=== PATIENT | female | born 1955 | race Hispanic/Latino ===

== ENCOUNTER 2018-05-17 01:37 | Emergency (ER) | payer OTHER ==
--- NOTE | 2018-05-17 03:10 | C.PDOC ---
History Of Present Illness 62 year old female with PMHx of arthritis presents to the ED c/o left knee pain that worsened today while laying down in bed. Patient states her pain medications did not provide any help. Patient denies injury, fall, trauma, numbness, weakness. Time Seen by Provider: 05/17/18 02:10 Chief Complaint (Nursing): Lower Extremity Problem/Injury History Per: Patient History/Exam Limitations: no limitations Onset/Duration Of Symptoms: Hrs Current Symptoms Are (Timing): Still Present Recent travel outside of the [place]: No Additional History Per: Patient - Knee Description Of Injury: Other Currently Unable To: Bend Or Move Alleviating Factor(s): OTC Pain Medication Past Medical History Reviewed: Historical Data, Nursing Documentation, Vital Signs Vital Signs: Last Vital Signs Temp 98.4 F 05/17/18 03:26 Pulse 77 05/17/18 03:26 Resp 16 05/17/18 03:26 BP 152/96 H 05/17/18 03:26 Pulse Ox 98 05/17/18 04:25 - Medical History PMH: Arthritis Surgical History: No Surg Hx Family History: States: Unknown Family Hx - Social History Hx Alcohol Use: No Hx Substance Use: No - Immunization History Hx Tetanus Toxoid Vaccination: Yes Hx Influenza Vaccination: Yes Hx Pneumococcal Vaccination: Yes Review Of Systems Constitutional: Negative for: Fever, Chills Musculoskeletal: Positive for: Leg Pain (left knee) Skin: Negative for: Rash Neurological: Negative for: Weakness, Numbness Physical Exam - Physical Exam Appears: Non-toxic, No Acute Distress Skin: Normal Color, Warm, Dry Head: Atraumatic, Normacephalic Eye(s): bilateral: Normal Inspection Oral Mucosa: Moist Neck: Normal ROM, Supple Chest: Symmetrical Cardiovascular: Rhythm Regular Respiratory: Normal Breath Sounds, No Rales, No Rhonchi, No Wheezing Back: Normal Inspection Extremity: Normal ROM (left knee painful), Tenderness (minimal medial aspect left knee), Capillary Refill (< 2 seconds), No Deformity, No Swelling Pulses: Left Dorsalis Pedis: Normal, Right Dorsalis Pedis: Normal Neurological/Psych: Oriented x3, Normal Speech, Normal Motor, Normal Sensation Gait: Steady ED Course And Treatment O2 Sat by Pulse Oximetry: 98 (ON RA) Pulse Ox Interpretation: Normal Progress Note: Plan: - Toradol 30 mg IM. - Prednisone 60 mg PO. Patient was put in an GRAHAM wrap but RN and patient was advised to follow up with PMD. 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 - Scribe Statement The provider has reviewed the documentation as recorded by the Scribe Enrique Aaron All medical record entries made by the Scribe were at my direction and personally dictated by me. I have reviewed the chart and agree that the record accurately reflects my personal performance of the history, physical exam, medical decision making, and the department course for this patient. I have also personally directed, reviewed, and agree with the discharge instructions and disposition.
[2018-05-17 03:27] VITALS: BP 152/96; PULSE 77; RESP 16; TEMP 98.4
[2018-05-17 04:22] VITALS: O2SAT 98
== END 2018-05-17 03:27 | disposition home or self-care (01) ==
LOC: C.ER 01:37
DX: M25.562 Pain in left knee (principal)
CPT/HCPCS: 96372; 99284; J1885

== ENCOUNTER 2018-07-10 09:25 | Inpatient (IN) | payer OTHER ==
[2018-07-05 09:19] VITALS: BMI 40.7
[~2018-07-10 09:25] MED LIST: Bupivacaine 0.25% 20 ML INJ IJ ONE; Thrombin Topical 20,000 Intl Units Spray Kit TOP ONE; ceFAZolin IV 1 gm in Dextrose 2 GM/100 ML BAG IVPB ONE
[2018-07-10] MEDS ORDERED: Rocuronium 10 mg/ml (5 ml) ONE (10:56)
[2018-07-10] MEDS ORDERED: Propofol 10 mg/ml Inj (20 ML) ONE ×2 (10:56→14:52)
[2018-07-10] MEDS ORDERED: Midazolam 2 MG/2 ML VIAL ONE (10:56)
[2018-07-10] MEDS ORDERED: Bacitracin 150,000 UNIT in Sodium Chloride 0.9% Irrig 3,000 ML IR SCH (11:29)
[2018-07-10] MEDS ORDERED: Bupivacaine Liposomal Inj 20 ml INFIL ONE (11:30)
--- NOTE | 2018-07-10 11:59 | CP.PCM.HP ---
History of Present Illness - History of Present Illness History of Present Illness: 63F complains of left knee DJD failed conservative mgmt and elected for TKR. PMH: HTN NKDA no hx bleeding clotting disorder, stents, DVT PE, seizure, CAD, CVA Present on Admission - Present on Admission Any Indicators Present on Admission: No Review of Systems - Review of Systems All systems: reviewed and no additional remarkable complaints except - Musculoskeletal Musculoskeletal: As Per HPI Past Patient History - Past Medical History & Family History Past Medical History?: Yes Past Family History: Reviewed and not pertinent - Past Social History Smoking Status: Light Smoker < 10 Cigarettes Daily - CARDIAC Hx Hypertension: Yes - PULMONARY Hx Respiratory Disorders: No - NEUROLOGICAL Hx Neurological Disorder: No - HEENT Hx HEENT Problems: No - RENAL Hx Chronic Kidney Disease: No - ENDOCRINE/METABOLIC Hx Endocrine Disorders: No - HEMATOLOGICAL/ONCOLOGICAL Hx Blood Disorders: No - INTEGUMENTARY Hx Dermatological Problems: No - MUSCULOSKELETAL/RHEUMATOLOGICAL Hx Musculoskeletal Disorders: Yes Hx Arthritis: Yes Hx Degenerative Joint Disease: Yes - GASTROINTESTINAL Hx Gastrointestinal Disorders: Yes - GENITOURINARY/GYNECOLOGICAL Hx Genitourinary Disorders: No - PSYCHIATRIC Hx Psychophysiologic Disorder: No Hx Substance Use: No - SURGICAL HISTORY Hx Surgeries: Yes Hx Orthopedic Surgery: Yes (LEFT BIG TOE) - ANESTHESIA Hx Anesthesia: Yes Hx Anesthesia Reactions: No Hx Malignant Hyperthermia: No Has any member of the family had a problem w/ anesthesia?: No Meds Allergies/Adverse Reactions: Allergies Allergy/AdvReac Type Severity Reaction Status Date / Time No Known Allergies Allergy Verified 05/17/18 01:51 Physical Exam - Constitutional Appears: Well, No Acute Distress - Respiratory Exam Respiratory Exam: NORMAL BREATHING PATTERN - Extremities Exam Additional comments: calves soft NT neg homans sensaiton intact +DP/PT pulses - Expanded Lower Extremities Exam Left Knee exam: tenderness Ankle exam: FULL ROM, NORMAL INSPECTION - Neurological Exam Neurological exam: Alert, Oriented x3 - Psychiatric Exam Psychiatric exam: Normal Affect, Normal Mood - Skin Skin Exam: Dry, Intact, Normal Color, Warm Results - Vital Signs Recent Vital Signs: Last Vital Signs Temp 97.8 F 07/10/18 10:02 Pulse 78 07/10/18 10:02 Resp 18 07/10/18 10:02 BP 144/66 07/10/18 10:02 Pulse Ox 97 07/10/18 10:02 - Labs Labs: Laboratory Results - last 24 hr 07/10/18 10:45 Blood Type AB POSITIVE - Impressions Impression: labs and medical clearance on chart, reviewed Assessment & Plan (1) Primary osteoarthritis of left knee Assessment and Plan: NPO T&C for TKR risks/lavelle/alt of TKR explained to pt who verbalized understanding and consented to procedure d/w Dr. Camarena, agrees with above Status: Acute (2) HTN (hypertension) Assessment and Plan: cont home meds Status: Chronic
[2018-07-10] MEDS ORDERED: Tranexamic Acid 1,000 MG in Sodium Chloride 0.9% 50 ML IV ONE ×2 (12:00→13:00)
[2018-07-10] MEDS ORDERED: Phenylephrine 10 mg/ml Inj ONE (12:16)
[2018-07-10] MEDS ORDERED: Sodium Chloride 0.9% 60 ML IV ONE (12:32)
[2018-07-10] MEDS ORDERED: Morphine 4 MG/ML VIAL ONE (13:56)
[2018-07-10] MEDS ORDERED: Neostigmine Methylsulfate 3mg/3ml Syringe IV ONE (14:25)
[2018-07-10] MEDS ORDERED: Bupivacaine 0.25% 20 ML INJ IJ ONE ×2 (14:48→15:01)
--- NOTE | 2018-07-10 14:51 | PCM.SURG1 ---
Surgeon's Initial Post Op Note - Surgeon's Notes Surgeon: Lauren Camarena MD Tank Bottom Assembler: Tika Nicolas PA-C Type of Anesthesia: General Endo Anesthesia Administered By: Dr. Mercado Pre-Operative Diagnosis: left knee osteoarthritis Operative Findings: see full note Post-Operative Diagnosis: same Operation Performed: left total knee arthroplasty Specimen/Specimens Removed: none Estimated Blood Loss: EBL {In ML}: 50 Blood Products Given: N/A Drains Used: Hemovac, Wound Vac Post-Op Condition: Fair Date of Surgery/Procedure: 07/10/18 Time of Surgery/Procedure: 14:51
[2018-07-10] MEDS: HYDROmorphone 0.5 mg/0.5 ml ISec IVP PRN ×2 (15:00→16:00)
--- NOTE | 2018-07-10 15:16 | PCM.ANESB3 ---
Femoral Nerve Block - Femoral Nerve Block Date of Procedure: 07/10/18 Anesthesiologist: Jess Pre-Procedure Diagnosis: Left knee OA Post-Procedure Diagnosis: Left knee OA Procedure Performed: Femoral Nerve Block Left - Procedure Femoral Nerve Block: The procedure was explained to the patient that it is for the post-operative pain management. Consent was obtained after a thorough discussion with the patient regarding the benefits and possible complications of local anesthetic block of the femoral nerve at the inguinal crease area. The patient was brought to the operating room and standard monitors were applied. Time-out was held with the circulating nurse to confirm the correct surgery and the appropriate block. After applying oxygen by nasal cannula and administering IV Sedation, patient was placed in supine position with fully extended lower extremities and the groin exposed. The femoral artery was then carefully palpated. The ultrasound transducer was then applied to this area in the transverse plane and the femoral nerve was visualized lateral to the femoral artery and underneath the fascia iliaca. After thorough identification, the inguinal crease area was prepped with Betadine solution three times and 1 % Lidocaine was injected subcutaneously for topical anesthesia. At this point, a #22 gauge Stimuplex 2-inch needle was inserted immediately lateral to the femoral artery pulse at the inguinal crease and advanced perpendicularly. The needle was inserted to the ultrasound transducer in-plane towards the femoral nerve in a [id number] direction. Needle advancement was performed carefully under direct ultrasound visualization. After negative aspiration, 20 cc of __0.25% ___bupivicaine____was injected. Under ultrasound guidance the local anesthetics were observed spreading below fascia iliaca and around the femoral nerve. The needle was removed intact and sterile dressing was applied. The patient had stable vital signs, was conscious and in no apparent distress. The patient tolerated the femoral nerve block well with stable vital signs and was prepared for subsequent surgery.
--- NOTE | 2018-07-10 15:42 | RAD ---
Date of service: 07/10/2018 PROCEDURE: Left Knee Radiographs. HISTORY: Pain. COMPARISON: None. FINDINGS: BONES: Status post recent total knee arthroplasty tibial stem cemented. Fred ocal alignment appears appropriate. JOINTS: Medial tibial spine spurring compatible with osteoarthrosis JOINT EFFUSION: Small joint effusion suggested. OTHER FINDINGS: Subcutaneous radiolucencies compatible with recent intervention suprapatellar drainage tube in place. Anterior skin sandrine present IMPRESSION: Recent total knee arthroplasty -expectant postop changes
--- NOTE | 2018-07-10 15:55 | CP.PCM.CON ---
<MarilynbrittaEufemia TamikaJonathon - Last Filed: 07/10/18 15:44> History of Present Illness - History of Present Illness History of Present Illness: Consult for Hypertension Patient is a 63 year old female with a history of osteoarthritis, degenerative disc disease and hypertension, who presents to the hospital for left total knee replacement with Dr. Camarena. The patient was recently diagnosed with hypertension by her PMD, Dr Nino Edwards, approximately 2 months ago and has been taking Losartan 50mg PO daily. She checks her blood pressure at home, which ranges from 120/70 to 144/82. She also takes aspirin 81mg PO daily, but has not taken it for 8 days prior to the surgery. She currently reports feeling tired, otherwise has no additional complaints at this time. Remaining review of systems is negative. PMD: Dr. Jessika Edwards PMHx: Osteoarthritis, HTN, Degenerative disc disease SurgHx: Left great toe ("toe was fused together") 10+ years ago FamHx: Father- Heart disease, throat cancer; Mother- Pancreatic cancer SocHx: smokes 1/2 ppd [id number], denies alcohol and drug use; lives with daughter (Nehemias Nicole) and granddaughter in [place]; retired (formerly worked in a bank and daycare) Allergies: NKDA Medications: Losartan 50mg PO daily (in AM), ASA 81mg PO daily, multivitamins, omega 3 Review of Systems - Constitutional Constitutional: Fatigue. absent: Fever, Headache - EENT Ears: absent: Dizziness - Cardiovascular Cardiovascular: absent: Chest Pain, Dyspnea, Edema, Lightheadedness, Rapid Heart Rate - Respiratory Respiratory: absent: Cough, Dyspnea - Gastrointestinal Gastrointestinal: absent: Abdominal Pain, Constipation, Diarrhea, Hematochezia, Nausea, Vomiting - Genitourinary Genitourinary: absent: Dysuria, Pyuria - Musculoskeletal Additional comments: left LE pain post total knee replacement - Neurological Neurological: absent: Dizziness, Headaches - Endocrine Endocrine: Fatigue Past Patient History - Past Medical History & Family History Past Medical History?: Yes Past Family History: Reviewed and not pertinent - Past Social History Smoking Status: Light Smoker < 10 Cigarettes Daily - CARDIAC Hx Hypertension: Yes - PULMONARY Hx Respiratory Disorders: No - NEUROLOGICAL Hx Neurological Disorder: No - HEENT Hx HEENT Problems: No - RENAL Hx Chronic Kidney Disease: No - ENDOCRINE/METABOLIC Hx Endocrine Disorders: No - HEMATOLOGICAL/ONCOLOGICAL Hx Blood Disorders: No - INTEGUMENTARY Hx Dermatological Problems: No - MUSCULOSKELETAL/RHEUMATOLOGICAL Hx Musculoskeletal Disorders: Yes Hx Arthritis: Yes Hx Degenerative Joint Disease: Yes - GASTROINTESTINAL Hx Gastrointestinal Disorders: Yes - GENITOURINARY/GYNECOLOGICAL Hx Genitourinary Disorders: No - PSYCHIATRIC Hx Psychophysiologic Disorder: No Hx Substance Use: No - SURGICAL HISTORY Hx Surgeries: Yes Hx Orthopedic Surgery: Yes (LEFT BIG TOE) - ANESTHESIA Hx Anesthesia: Yes Hx Anesthesia Reactions: No Hx Malignant Hyperthermia: No Has any member of the family had a problem w/ anesthesia?: No Meds Allergies/Adverse Reactions: Allergies Allergy/AdvReac Type Severity Reaction Status Date / Time No Known Allergies Allergy Verified 05/17/18 01:51 - Medications Medications: Current Medications Acetaminophen (Tylenol 325mg Tab) 650 mg PO Q6 [facility]A Apixaban (Eliquis) 2.5 mg PO BID [facility] Docusate Sodium (Colace) 100 mg PO BID [facility] Ergocalciferol (Drisdol 50,000 Intl Units Cap) 1 cap PO Q7D [facility]A Hydromorphone HCl (Dilaudid) 0.5 mg IVP Q10M PRN PRN Reason: Pain, moderate (4-7) Stop: 07/10/18 16:56 Last Admin: 07/10/18 15:00 Dose: 0.5 mg Hydromorphone HCl (Dilaudid) 0.5 mg IVP Q4H PRN PRN Reason: Pain, severe (8-10) Cefazolin Sodium/Dextrose (Ancef Iv 2 Gm Duplex) 2 gm in 50 mls @ 100 mls/hr IVPB Q8H [facility]A PRN Reason: Protocol Stop: 07/11/18 04:29 Losartan Potassium (Cozaar) 50 mg PO DAILY [facility] Multivitamins/Minerals (Therapeutic-M Tab) 1 tab PO DAILY [facility] Oxycodone HCl (Oxycodone Immediate Release Tab) 10 mg PO Q6 PRN PRN Reason: Pain, moderate (4-7) Pregabalin (Lyrica) 50 mg PO BID [facility] Sennosides (Senokot Tab) 17.2 mg PO HS [facility]A Physical Exam - Constitutional Appears: No Acute Distress - Head Exam Head Exam: ATRAUMATIC, NORMAL INSPECTION, NORMOCEPHALIC - Eye Exam Eye Exam: EOMI, Normal appearance, PERRL - ENT Exam ENT Exam: Mucous Membranes Moist - Respiratory Exam Respiratory Exam: Clear to Auscultation Bilateral, NORMAL BREATHING PATTERN. absent: Rales, Rhonchi, Wheezes, Respiratory Distress - Cardiovascular Exam Cardiovascular Exam: REGULAR RHYTHM, +S1, +S2. absent: Bradycardia, Tachycardia - GI/Abdominal Exam GI & Abdominal Exam: Normal Bowel Sounds, Soft. absent: Distended, Firm, Guarding, Mass, Tenderness - Extremities Exam Additional comments: RLE: pulses intact, no edema palpated, sensation intact LLE: pulses intact, no edema palpated, sensation intact, brace and dressing in place- clean, dry, intact - Neurological Exam Neurological exam: Alert, Oriented x3 - Psychiatric Exam Psychiatric exam: Normal Affect, Normal Mood - Skin Skin Exam: Dry, Intact, Warm Results - Vital Signs Recent Vital Signs: Last Vital Signs Temp 97.8 F 07/10/18 10:02 Pulse 78 07/10/18 10:02 Resp 18 07/10/18 10:02 BP 144/66 07/10/18 10:02 Pulse Ox 97 07/10/18 10:02 - Labs Labs: Laboratory Results - last 24 hr 07/10/18 10:45 Blood Type AB POSITIVE Antibody Screen Negative Assessment & Plan (1) HTN (hypertension) Assessment and Plan: Continue home medication: Losartan 50mg PO daily Continue to monitor vitals. Status: Chronic (2) Status post total knee replacement, left Assessment and Plan: s/p left total knee replacement with Dr. Camarena on 07/10/18 Continue management per ortho, Dr. Camarena Pain management per ortho PT/OT Status: Acute (3) Tobacco abuse Assessment and Plan: Smoking cessation counseling provided. Patient offered Nicoderm patch; however, declined and "wants to quit on her own ". Status: Acute (4) Prophylactic measure Assessment and Plan: DVT: Eliquis 2.5mg PO BID, SCD on RLE GI: not indicated Regular diet PT/OT Incentive spirometer Status: Acute <Kristine Cortés V - Last Filed: 07/10/18 21:33> Meds - Medications Medications: Current Medications Acetaminophen (Tylenol 325mg Tab) 650 mg PO Q6 [facility]A Apixaban (Eliquis) 2.5 mg PO BID [facility] Docusate Sodium (Colace) 100 mg PO BID [facility]A Ergocalciferol (Drisdol 50,000 Intl Units Cap) 1 cap PO Q7D [facility] Hydromorphone HCl (Dilaudid) 0.5 mg IVP Q4H PRN PRN Reason: Pain, severe (8-10) Cefazolin Sodium/Dextrose (Ancef Iv 2 Gm Duplex) 2 gm in 50 mls @ 100 mls/hr IVPB Q8H [facility]A PRN Reason: Protocol Stop: 07/11/18 04:29 Losartan Potassium (Cozaar) 50 mg PO DAILY [facility] Multivitamins/Minerals (Therapeutic-M Tab) 1 tab PO DAILY [facility] Ondansetron HCl (Zofran Inj) 4 mg IVP Q4H PRN PRN Reason: Nausea/Vomiting Last Admin: 07/10/18 20:15 Dose: 4 mg Oxycodone HCl (Oxycodone Immediate Release Tab) 10 mg PO Q6 PRN PRN Reason: Pain, moderate (4-7) Pregabalin (Lyrica) 50 mg PO BID [facility] Sennosides (Senokot Tab) 17.2 mg PO HS [facility] Results - Vital Signs Recent Vital Signs: Last Vital Signs Temp 98 F 07/10/18 19:45 Pulse 85 07/10/18 19:45 Resp 20 07/10/18 19:45 BP 121/84 07/10/18 19:45 Pulse Ox 95 07/10/18 19:45 - Labs Labs: Laboratory Results - last 24 hr 07/10/18 10:45 Blood Type AB POSITIVE Antibody Screen Negative Attending/Attestation - Attestation I have personally seen and examined this patient.: Yes I have fully participated in the care of the patient.: Yes I have reviewed all pertinent clinical information: Yes Notes (Text): Medicine is consult for post medical management following total knee replacement with a patient with known degenerative joint disease, hypertension, smoking history. We have met patient in the PACU. She is antonio lady; has been off her aspirin for 8 days prior to OR, has taken her Losartan this morning prior to OR; denies any acute complaints. She reports she takes MVI and fish oil over the counter at home. patient reports she is fpc smoker, she understands the cancer risk, carole also explained to her can delay wound healing as well. She has been offered nicotone patch for cessation but does not want. Case discussed with medical biller. Assessment/Plan (1) After care, status post total knee replacement, left History of Degenerative Joint Disease Assessment and Plan: * s/p left total knee replacement with Dr. Camarena on 07/10/18 * Continue management per ortho, Dr. Camarena * preoperative/intraoperative/postoperative management per ortho * Pain management per ortho * PT/OT eval * Patient ordered for antibiotic post OR. * I hae added probiotic on board * Anticoagulation per orthopedic * Will need to f/u with orthopedic when patient resume aspirin Status: Acute (2) HTN (hypertension) Assessment and Plan: * Continue home medication: Losartan 50mg PO daily * Continue to monitor vitals. Status: Chronic (3) Tobacco abuse Assessment and Plan: * Smoking cessation counseling provided. * Patient offered Nicoderm patch; however, declined and "wants to quit on her own". Status: Chronic (4) Prophylactic measure Assessment and Plan: * DVT Ppx: Eliquis 2.5mg PO BID, SCD on RLE * GI: not indicated * changed diet to heart healthy given hypertension * PT/OT * incentive spirometer Status: Acute
[2018-07-10 20:55] VITALS: RESP 20
[2018-07-10] MEDS: ceFAZolin IV 2 gm in Dextrose 2 GM/50 ML BAG IVPB SCH (21:35)
--- NOTE | 2018-07-11 00:36 | OP ---
PROCEDURE DATE: 07/10/2018 PREOPERATIVE DIAGNOSIS: Left knee arthritis. POSTOPERATIVE DIAGNOSIS: Left knee arthritis. PROCEDURE: Left total knee arthroplasty. SURGEON: Justin Camarena MD ASSISTANTS: Dr. Camarena was assisted by Daniela Mccurdy, physician equity sales assistant and Huma Blackwell PA-C. Both physician assistants were scrubbed and present throughout the entire case and assisted in patient positioning, retraction during the case as well as wound closure. COMPLICATIONS: None. ESTIMATED BLOOD LOSS: 125 mL. TOURNIQUET TIME: 89 minutes. IMPLANT: [employer]omet Vanguard total knee system. INDICATIONS FOR PROCEDURE: This is a 63-year-old female who presented with longstanding left knee pain. Clinical examination was consistent with significant medial and peripatellar tenderness to palpation, pain at the extremes of knee flexion, pain with axial load. Radiographic examination was consistent with advanced degenerative joint disease of the knee. After a period of failed nonsurgical management including activity modification, medications, and injections, recommendations were for a left total knee arthroplasty. The risks, benefits, and alternatives of the procedure were discussed with the patient and informed consent was obtained. OPERATIVE PROCEDURE: After surgical site was finally verified in the perioperative holding area, the patient was taken to the operating room and placed supine on the operating room table. After administration of general anesthesia, the patient received 2 g of Ancef IV. Menard catheter was inserted. Tourniquet was placed about the left thigh. Care was taken to make sure that all bony prominences and nerves were well padded and protected, and the left lower extremity was prepped and draped in the usual sterile fashion. The bony landmarks were identified about the left knee. Approximately 10-cm longitudinal midline incision was made. Soft tissues were dissected sharply down to the knee joint, and a medial parapatellar arthrotomy was performed. Medial and lateral menisci of the anterior fat pad, ACL and PCL were all resected. Once the knee joint was adequately exposed, the step drill was used to drill into the medullary canal of the distal femur. The intramedullary distal femoral cutting block was inserted and pinned into place. A distal femoral resection was performed. Next, a femoral component was sized. The 4-in-1 cut block was pinned into place. Anterior and posterior cuts were then performed. Next, a box cut was performed on the distal femur. Attention was directed to the tibia. Extramedullary tibial guide was inserted and pinned into place. Satisfied with our alignment, the tibial resection was performed. Additionally, flexion and extension gaps were checked. The patient was noted to have full flexion and extension and stable with varus and valgus stress through the range of motion. Satisfied, tibial plate was sized and the medullary canal of the proximal tibia was reamed and punched with a cruciate punch. At this point, with a trial tibia, trial femur, and trial bearing were placed. The knee was taken through range of motion and was noted to be stable throughout range of motion. Attention was then directed to the patella. Thickness of the patella was measured, and a patellar resection was performed. The patellar button was sized and the holes for our patella were then drilled. Trial patella was then inserted, and the knee was taken through range of motion. The patient was noted to have some lateral tilt, and this was corrected by performing the lateral retinacular release. At this point, the trial components were removed and the knee joint was pulse lavaged with antibiotic saline solution. The bony surfaces were then dried, and the actual tibial, femoral, and patellar components were cemented into place. Care was taken to remove all excess cement. Once the cement was hardened, the wound was inspected for any debris and was once again pulse lavaged. The actual bearing was then inserted and locked into place with a cross pin. At this point, the tourniquet was deflated and any obvious bleeding was cauterized. The medium Hemovac drain was inserted, and arthrotomy was closed with #1 Vicryl suture. The subcutaneous tissue was closed using 0 Vicryl and 2-0 Vicryl suture, and the skin was closed using sandrine. A MIRIAM incisional wound dressing was applied, and a knee immobilizer was placed. The patient was awakened from the procedure and taken to the recovery room in stable condition. Justin Camarena MD
[2018-07-11] MEDS: oxyCODONE 10 mg Immediate Release Tab PO PRN ×2 (02:29→09:26)
[2018-07-11] MEDS: ceFAZolin IV 2 gm in Dextrose 2 GM/50 ML BAG IVPB SCH (04:14)
[2018-07-11] MEDS: HYDROmorphone 0.5 mg/0.5 ml ISec IVP PRN ×4 (06:14→23:46)
[2018-07-11] MEDS ORDERED: Ergocalciferol 50,000 Intl Units Cap PO SCH (08:00)
[2018-07-11 08:38] LABS: BASO # 0.1 K/uL (0.0-0.2); BASO % 0.6 % (0.0-2.0); EOS # 0.1 K/uL (0.0-0.7); HEMOGLOBIN 11.1 g/dL (11.0-16.0); LYMPH # 2.4 K/uL (1.0-4.3); LYMPH % 27.2 % (20.0-40.0); MEAN CELL VOLUME 91.4 fL (81.0-99.0); MEAN CORPUSCULAR HEMOGLOBIN 30.8 pg (27.0-31.0); MEAN CORPUSCULAR HGB CONC 33.7 g/dL (33.0-37.0); MEAN PLATELET VOLUME 8.2 fL (7.2-11.7); MONO # 0.7 K/uL (0.0-0.8); MONO % 7.4 % (0.0-10.0); NEUT # 5.7 K/uL (1.8-7.0); NEUT % 63.8 % (50.0-75.0); NRBC % 0.1 % (0.0-2.0); RBC 3.62 Mil/uL (3.80-5.20); RED CELL DISTRIBUTION WIDTH 13.5 % (11.5-14.5); WHITE BLOOD COUNT 8.9 K/uL (4.8-10.8)
[2018-07-11 09:01] LABS: ALB/GLOB RATIO 1.1 (1.0-2.1); ALBUMIN 3.1 g/dL (3.5-5.0); ALT/SGPT 25 U/L (9-52); AST/SGOT 14 U/L (14-36); BLOOD UREA NITROGEN 13 mg/dL (7-17); CALCIUM 8.3 mg/dl (8.6-10.4); GFR NON-AFRICAN AMERICAN > 60
--- NOTE | 2018-07-11 09:16 | CP.PCM.PN ---
Subjective - Date & Time of Evaluation Date of Evaluation: 07/11/18 Time of Evaluation: 09:11 - Subjective Subjective: Patient POD#1. Patient seen and examined. Patient alert and awake. Denies any significant pain. Menard removed. Patient tolerated CPM machine yesterday. afebrile WBC 8.9 Hgb 11.1 L knee: dressings are dry and intact. Hemovac in place on suction. PICCO on. Calf and thigh are soft and non-tender. Neurovascularly she is intact distally POD# 1 s/p L TKA Cont DVT prophylaxis Cont PT Cont CPM Cont pain control Cont incentive spirometer Dressing changes tomorrow Plan on discharge tomorrow with home PT and visiting nurse Discussed above with Dr. Camarena, he agrees. Objective - Vital Signs/Intake and Output Vital Signs (last 24 hours): Temp Pulse Resp BP Pulse Ox 98.9 F 81 20 136/74 96 07/11/18 07:00 07/11/18 07:00 07/11/18 07:00 07/11/18 07:00 07/11/18 07:00 Intake and Output: 07/11/18 07/11/18 06:59 18:59 Intake Total 550 Output Total 760 Balance -210 - Medications Medications: Current Medications Acetaminophen (Tylenol 325mg Tab) 650 mg PO Q6 [facility] Last Admin: 07/11/18 06:26 Dose: Not Given Apixaban (Eliquis) 2.5 mg PO BID [facility] Docusate Sodium (Colace) 100 mg PO BID [facility] Last Admin: 07/10/18 21:37 Dose: Not Given Ergocalciferol (Drisdol 50,000 Intl Units Cap) 1 cap PO Q7D [facility] Hydromorphone HCl (Dilaudid) 0.5 mg IVP Q4H PRN PRN Reason: Pain, severe (8-10) Last Admin: 07/11/18 06:14 Dose: 0.5 mg Losartan Potassium (Cozaar) 50 mg PO DAILY [facility] Multivitamins/Minerals (Therapeutic-M Tab) 1 tab PO DAILY [facility] Ondansetron HCl (Zofran Inj) 4 mg IVP Q4H PRN PRN Reason: Nausea/Vomiting Last Admin: 07/10/18 20:15 Dose: 4 mg Oxycodone HCl (Oxycodone Immediate Release Tab) 10 mg PO Q6 PRN PRN Reason: Pain, moderate (4-7) Last Admin: 07/11/18 02:29 Dose: 10 mg Pregabalin (Lyrica) 50 mg PO BID [facility] Last Admin: 07/10/18 21:46 Dose: 50 mg Saccharomyces Boulardii (Florastor) 250 mg PO BID [facility] Sennosides (Senokot Tab) 17.2 mg PO HS [facility] Last Admin: 07/10/18 21:38 Dose: Not Given - Labs Labs: 07/11/18 08:16 07/11/18 08:16
[2018-07-11] MEDS: Multivitamin With Minerals Tab PO SCH (09:25)
[2018-07-11] MEDS: Saccharomyces Boulardi 250 mg Cap PO SCH ×2 (09:25→17:20)
--- NOTE | 2018-07-11 12:01 | CP.PCM.PN ---
Subjective - Date & Time of Evaluation Date of Evaluation: 07/11/18 Time of Evaluation: 11:59 - Subjective Subjective: RX FOR HOME PHY THER AND WOUND CARE (TO BE DONE EVERY OTHER DAY OR 3 TIMES/WEEK ; CLEAN WITH NS AND APPLY DSD) GIVEN TO CASE MANAGEMENT PER THE REQUEST OF SHARATH MCDONALD. NO FURTHER ORDERS. Objective - Vital Signs/Intake and Output Vital Signs (last 24 hours): Temp Pulse Resp BP Pulse Ox 98.9 F 81 20 136/74 96 07/11/18 07:00 07/11/18 07:00 07/11/18 07:00 07/11/18 07:00 07/11/18 07:00 Intake and Output: 07/11/18 07/11/18 06:59 18:59 Intake Total 550 Output Total 760 Balance -210 - Medications Medications: Current Medications Acetaminophen (Tylenol 325mg Tab) 650 mg PO Q6 [facility] Last Admin: 07/11/18 06:26 Dose: Not Given Apixaban (Eliquis) 2.5 mg PO BID [facility] Last Admin: 07/11/18 09:25 Dose: 2.5 mg Docusate Sodium (Colace) 100 mg PO BID [facility] Last Admin: 07/11/18 09:27 Dose: Not Given Ergocalciferol (Drisdol 50,000 Intl Units Cap) 1 cap PO Q7D [facility] Last Admin: 07/11/18 09:29 Dose: 1 cap Hydromorphone HCl (Dilaudid) 0.5 mg IVP Q4H PRN PRN Reason: Pain, severe (8-10) Last Admin: 07/11/18 06:14 Dose: 0.5 mg Losartan Potassium (Cozaar) 50 mg PO DAILY [facility] Last Admin: 07/11/18 09:26 Dose: 50 mg Multivitamins/Minerals (Therapeutic-M Tab) 1 tab PO DAILY [facility] Last Admin: 07/11/18 09:25 Dose: 1 tab Ondansetron HCl (Zofran Inj) 4 mg IVP Q4H PRN PRN Reason: Nausea/Vomiting Last Admin: 07/10/18 20:15 Dose: 4 mg Oxycodone HCl (Oxycodone Immediate Release Tab) 10 mg PO Q6 PRN PRN Reason: Pain, moderate (4-7) Last Admin: 07/11/18 09:26 Dose: 10 mg Pregabalin (Lyrica) 50 mg PO BID [facility] Last Admin: 07/11/18 09:25 Dose: 50 mg Saccharomyces Boulardii (Florastor) 250 mg PO BID [facility] Last Admin: 07/11/18 09:25 Dose: 250 mg Sennosides (Senokot Tab) 17.2 mg PO [facility] Last Admin: 07/10/18 21:38 Dose: Not Given - Labs Labs: 07/11/18 08:16 07/11/18 08:16
--- NOTE | 2018-07-11 15:13 | CP.PCM.PN ---
<Kenrick Swan - Last Filed: 07/11/18 15:01> Subjective - Date & Time of Evaluation Date of Evaluation: 07/11/18 Time of Evaluation: 15:01 - Subjective Subjective: PGY-[address] Cortés Patient seen and examined at bedside. S/p L TKA yesterday, post-op day 1. Pt only complaining of L knee pain, extending proximally. She has been sleeping well and tolerating PO meals. Patient has not had a bowel movement since Monday before her procedure. Medical student performed OMT- mesenteric lift and gangliionic release, to attempt facilitation of bowel movements. Pt denies chest pain, dizziness, headache, abdominal pain, nausea, vomiting. Objective - Vital Signs/Intake and Output Vital Signs (last 24 hours): Temp Pulse Resp BP Pulse Ox 98.9 F 81 20 136/74 96 07/11/18 07:00 07/11/18 07:00 07/11/18 07:00 07/11/18 07:00 07/11/18 07:00 Intake and Output: 07/11/18 07/11/18 06:59 18:59 Intake Total 550 Output Total 760 Balance -210 - Medications Medications: Current Medications Acetaminophen (Tylenol 325mg Tab) 650 mg PO Q6 [facility] Last Admin: 07/11/18 12:59 Dose: 650 mg Apixaban (Eliquis) 2.5 mg PO BID [facility] Last Admin: 07/11/18 09:25 Dose: 2.5 mg Docusate Sodium (Colace) 100 mg PO BID [facility] Last Admin: 07/11/18 09:27 Dose: Not Given Ergocalciferol (Drisdol 50,000 Intl Units Cap) 1 cap PO Q7D [facility] Last Admin: 07/11/18 09:29 Dose: 1 cap Hydromorphone HCl (Dilaudid) 0.5 mg IVP Q4H PRN PRN Reason: Pain, severe (8-10) Last Admin: 07/11/18 13:01 Dose: 0.5 mg Losartan Potassium (Cozaar) 50 mg PO DAILY [facility] Last Admin: 07/11/18 09:26 Dose: 50 mg Multivitamins/Minerals (Therapeutic-M Tab) 1 tab PO DAILY [facility] Last Admin: 07/11/18 09:25 Dose: 1 tab Ondansetron HCl (Zofran Inj) 4 mg IVP Q4H PRN PRN Reason: Nausea/Vomiting Last Admin: 07/10/18 20:15 Dose: 4 mg Oxycodone HCl (Oxycodone Immediate Release Tab) 10 mg PO Q6 PRN PRN Reason: Pain, moderate (4-7) Last Admin: 07/11/18 09:26 Dose: 10 mg Pregabalin (Lyrica) 50 mg PO BID [facility] Last Admin: 07/11/18 09:25 Dose: 50 mg Saccharomyces Boulardii (Florastor) 250 mg PO BID [facility] Last Admin: 07/11/18 09:25 Dose: 250 mg Sennosides (Senokot Tab) 17.2 mg PO HS [facility] Last Admin: 07/10/18 21:38 Dose: Not Given - Labs Labs: 07/11/18 08:16 07/11/18 08:16 - Head Exam Head Exam: ATRAUMATIC, NORMAL INSPECTION - Eye Exam Eye Exam: EOMI, Normal appearance - ENT Exam ENT Exam: Mucous Membranes Moist - Respiratory Exam Respiratory Exam: Clear to Ausculation Bilateral, NORMAL BREATHING PATTERN - Cardiovascular Exam Cardiovascular Exam: REGULAR RHYTHM, +S1, +S2 - GI/Abdominal Exam GI & Abdominal Exam: Soft, Normal Bowel Sounds. absent: Tenderness - Extremities Exam Additional comments: s/p L TKA. Dresings dry, knee immobilizer in place - Neurological Exam Neurological Exam: Alert, Awake, CN II-XII Intact, Normal Gait, Oriented x3 - Psychiatric Exam Psychiatric exam: Normal Affect, Normal Mood - Skin Skin Exam: Dry, Intact, Normal Color, Warm Assessment and Plan - Assessment and Plan (Free Text) Assessment: (1) HTN (hypertension) Assessment and Plan: Continue home medication: Losartan 50mg PO daily Continue to monitor vitals. HTN well controlled today in 102-110s/70s Status: Chronic (2) Status post total knee replacement, left Assessment and Plan: s/p left total knee replacement with Dr. Camarena on 07/10/18 Continue management per ortho, Dr. Camarena * Pain management per ortho * PT/OT * Continue CPM * Plan for patient to have home PT and home nursing/wound care on discharge. Rx has been provided. * Pt has not had BM since surgery yesterday. Medical student performed OMT- mesenteric lift. Make sure pt has BM before she can be discharged. * Dressings are dry and intact * Plan on discharge tomorrow Status: Acute (3) Tobacco abuse Assessment and Plan: Smoking cessation counseling provided. Patient offered Nicoderm patch; however, declined and "wants to quit on her own ". Status: Acute (4) Prophylactic measure Assessment and Plan: DVT: Eliquis 2.5mg PO BID, SCD on RLE GI: not indicated Regular diet PT/OT Incentive spirometer Status: Acute Assessment/Plan Discussed with Dr. Cortés <Kristine Cortés V - Last Filed: 07/12/18 00:05> Objective - Vital Signs/Intake and Output Vital Signs (last 24 hours): Temp Pulse Resp BP Pulse Ox 100.1 F H 97 H 20 103/67 95 07/11/18 23:43 07/11/18 15:00 07/11/18 15:00 07/11/18 15:00 07/11/18 15:00 Intake and Output: 07/11/18 07/12/18 18:59 06:59 Intake Total 480 Output Total 10 Balance 470 - Medications Medications: Current Medications Acetaminophen (Tylenol 325mg Tab) 650 mg PO Q6 [facility] Last Admin: 07/11/18 23:43 Dose: 650 mg Apixaban (Eliquis) 2.5 mg PO BID [facility] Last Admin: 07/11/18 17:19 Dose: 2.5 mg Docusate Sodium (Colace) 100 mg PO BID [facility] Last Admin: 07/11/18 17:20 Dose: 100 mg Ergocalciferol (Drisdol 50,000 Intl Units Cap) 1 cap PO Q7D [facility] Last Admin: 07/11/18 09:29 Dose: 1 cap Hydromorphone HCl (Dilaudid) 0.5 mg IVP Q4H PRN PRN Reason: Pain, severe (8-10) Last Admin: 07/11/18 23:46 Dose: 0.5 mg Losartan Potassium (Cozaar) 50 mg PO DAILY [facility] Last Admin: 07/11/18 09:26 Dose: 50 mg Multivitamins/Minerals (Therapeutic-M Tab) 1 tab PO DAILY [facility] Last Admin: 07/11/18 09:25 Dose: 1 tab Ondansetron HCl (Zofran Inj) 4 mg IVP Q4H PRN PRN Reason: Nausea/Vomiting Last Admin: 07/10/18 20:15 Dose: 4 mg Oxycodone HCl (Oxycodone Immediate Release Tab) 10 mg PO Q6 PRN PRN Reason: Pain, moderate (4-7) Last Admin: 07/11/18 09:26 Dose: 10 mg Pregabalin (Lyrica) 50 mg PO BID [facility] Last Admin: 07/11/18 17:21 Dose: 50 mg Saccharomyces Boulardii (Florastor) 250 mg PO BID [facility] Last Admin: 07/11/18 17:20 Dose: 250 mg Sennosides (Senokot Tab) 17.2 mg PO HS [facility] Last Admin: 07/11/18 21:33 Dose: 17.2 mg - Labs Labs: 07/11/18 08:16 07/11/18 08:16 Assessment and Plan - Assessment and Plan (Free Text) Plan: Patient seen, examined and case discussed with medical aide. Medicine on consult. Blood pressure in control. Patient advised low salt diet and nicoderm patch to reduce cravings for smoking but she does not want. Plan by surgery, standpoint will go home with PT and home nursing. Patient also understands she will go on with blood thinner. I have let her know to be careful in regards to fall while on this medication and that the reversal agent is pending. Discharge diganoses (1) After care, status post total knee replacement, left History of Degenerative Joint Disease Assessment and Plan: * s/p left total knee replacement with Dr. Camarena on 07/10/18 * Continue management per ortho, Dr. Camarena * preoperative/intraoperative/postoperative management per ortho * Pain management per ortho * PT/OT eval * Patient ordered for antibiotic post OR. * I hae added probiotic on board * Anticoagulation per orthopedic * Will need to f/u with orthopedic when patient resume aspirin Status: Acute (2) HTN (hypertension) Assessment and Plan: * Continue home medication: Losartan 50mg PO daily * Continue to monitor vitals. Status: Chronic (3) Tobacco abuse Assessment and Plan: * Smoking cessation counseling provided. * Patient offered Nicoderm patch; however, declined and "wants to quit on her own". Status: Chronic (4) Prophylactic measure Assessment and Plan: * DVT Ppx: Eliquis 2.5mg PO BID, SCD on RLE * GI: not indicated * changed diet to heart healthy given hypertension * PT/OT * incentive spirometer Status: Acute
[2018-07-12] MEDS: HYDROmorphone 0.5 mg/0.5 ml ISec IVP PRN ×2 (05:31→14:10)
[2018-07-12 07:29] LABS: BASO % 0.5 % (0.0-2.0); EOS % 0.4 % (0.0-4.0); HEMOGLOBIN 10.1 g/dL (11.0-16.0); LYMPH # 1.2 K/uL (1.0-4.3); LYMPH % 12.4 % (20.0-40.0); MEAN CELL VOLUME 90.5 fL (81.0-99.0); MEAN CORPUSCULAR HEMOGLOBIN 31.5 pg (27.0-31.0); MEAN CORPUSCULAR HGB CONC 34.8 g/dL (33.0-37.0); MEAN PLATELET VOLUME 8.1 fL (7.2-11.7); MONO # 0.8 K/uL (0.0-0.8); MONO % 8.2 % (0.0-10.0); NEUT # 7.5 K/uL (1.8-7.0); NEUT % 78.5 % (50.0-75.0); RBC 3.21 Mil/uL (3.80-5.20); RED CELL DISTRIBUTION WIDTH 13.6 % (11.5-14.5); WHITE BLOOD COUNT 9.6 K/uL (4.8-10.8)
[2018-07-12 07:36] LABS: BLOOD UREA NITROGEN 12 mg/dL (7-17); GFR NON-AFRICAN AMERICAN > 60
--- NOTE | 2018-07-12 08:20 | CP.PCM.PN ---
Subjective - Date & Time of Evaluation Date of Evaluation: 07/12/18 Time of Evaluation: 07:30 - Subjective Subjective: Patient seen and examined at bedside comfortable. Pain well controlled. No acute events overnight. Sp CP/SOB/N/V/D/fever/dizziness. Objective - Vital Signs/Intake and Output Vital Signs (last 24 hours): Temp Pulse Resp BP Pulse Ox 98.3 F 91 H 20 121/75 96 07/12/18 04:20 07/12/18 04:20 07/12/18 04:20 07/12/18 04:20 07/12/18 04:20 Intake and Output: 07/12/18 07/12/18 06:59 18:59 Intake Total 480 Output Total 15 Balance 465 - Medications Medications: Current Medications Acetaminophen (Tylenol 325mg Tab) 650 mg PO Q6 [facility] Last Admin: 07/12/18 05:33 Dose: 650 mg Apixaban (Eliquis) 2.5 mg PO BID [facility] Last Admin: 07/11/18 17:19 Dose: 2.5 mg Docusate Sodium (Colace) 100 mg PO BID [facility] Last Admin: 07/11/18 17:20 Dose: 100 mg Ergocalciferol (Drisdol 50,000 Intl Units Cap) 1 cap PO Q7D [facility] Last Admin: 07/11/18 09:29 Dose: 1 cap Hydromorphone HCl (Dilaudid) 0.5 mg IVP Q4H PRN PRN Reason: Pain, severe (8-10) Last Admin: 07/12/18 05:31 Dose: 0.5 mg Losartan Potassium (Cozaar) 50 mg PO DAILY [facility] Last Admin: 07/11/18 09:26 Dose: 50 mg Multivitamins/Minerals (Therapeutic-M Tab) 1 tab PO DAILY [facility] Last Admin: 07/11/18 09:25 Dose: 1 tab Ondansetron HCl (Zofran Inj) 4 mg IVP Q4H PRN PRN Reason: Nausea/Vomiting Last Admin: 07/10/18 20:15 Dose: 4 mg Oxycodone HCl (Oxycodone Immediate Release Tab) 10 mg PO Q6 PRN PRN Reason: Pain, moderate (4-7) Last Admin: 07/11/18 09:26 Dose: 10 mg Pregabalin (Lyrica) 50 mg PO BID [facility] Last Admin: 07/11/18 17:21 Dose: 50 mg Saccharomyces Boulardii (Florastor) 250 mg PO BID [facility] Last Admin: 07/11/18 17:20 Dose: 250 mg Sennosides (Senokot Tab) 17.2 mg PO HS [facility] Last Admin: 07/11/18 21:33 Dose: 17.2 mg - Labs Labs: 07/12/18 07:00 07/12/18 07:00 - Extremities Exam Additional comments: L knee: Dressings CDI, MIRIAM intact with minimal dry bloody drainage inferior aspect, Hemovac intact 5 cc drainage overnight Dressings taken down revealing wound CDI with sandrine, no drainage sensation intact SP/DP/TN motor intact EHL/FHL/TA/G pedal pulses intact comps soft and NT b/l Assessment and Plan (1) Primary osteoarthritis of left knee Assessment & Plan: POD #2 s/p L TKA doing well -Hemovac removed, MIRIAM changed this AM -Discharge home today with Home arrangements as per CM -Knee immobilizer while in bed at night -Rx in chart for d/c -f/u in office next Monday -maintain MIRIAM dressing -WBAT with rolling walker -above d/w Dr. Camarena in agreement Status: Acute
[2018-07-12] MEDS: oxyCODONE 10 mg Immediate Release Tab PO PRN (09:04)
[2018-07-12] MEDS: Multivitamin With Minerals Tab PO SCH (09:06)
[2018-07-12] MEDS: Saccharomyces Boulardi 250 mg Cap PO SCH (09:06)
--- NOTE | 2018-07-12 10:10 | CP.PCM.PN ---
Subjective - Date & Time of Evaluation Date of Evaluation: 07/12/18 Time of Evaluation: 10:07 - Subjective Subjective: PGY-[address] Cortés Patient seen and examined at bedside. S/p L TKA yesterday, post-op day 2. Patient still complaining of pain still behind left knee, somewhat improved with pain mediation. Patient has not passed gas, but did have one small bowel movement this morning- small amount of soft nonbloody stool. Patient is tolerating PO meals. She hopes to be able to go home today, and has plans for home PT/nursing. Pt denies any headaches, dizziness, chest pain, shortness of breath, abdominal pain, paresthesias. Objective - Vital Signs/Intake and Output Vital Signs (last 24 hours): Temp Pulse Resp BP Pulse Ox 98.3 F 91 H 20 121/75 96 07/12/18 04:20 07/12/18 04:20 07/12/18 04:20 07/12/18 04:20 07/12/18 04:20 Intake and Output: 07/12/18 07/12/18 06:59 18:59 Intake Total 480 Output Total 15 Balance 465 - Medications Medications: Current Medications Acetaminophen (Tylenol 325mg Tab) 650 mg PO Q6 [facility] Last Admin: 07/12/18 05:33 Dose: 650 mg Apixaban (Eliquis) 2.5 mg PO BID [facility] Last Admin: 07/12/18 09:05 Dose: 2.5 mg Docusate Sodium (Colace) 100 mg PO BID [facility] Last Admin: 07/12/18 09:06 Dose: 100 mg Ergocalciferol (Drisdol 50,000 Intl Units Cap) 1 cap PO Q7D [facility] Last Admin: 07/11/18 09:29 Dose: 1 cap Hydromorphone HCl (Dilaudid) 0.5 mg IVP Q4H PRN PRN Reason: Pain, severe (8-10) Last Admin: 07/12/18 05:31 Dose: 0.5 mg Losartan Potassium (Cozaar) 50 mg PO DAILY [facility] Last Admin: 07/12/18 09:06 Dose: 50 mg Multivitamins/Minerals (Therapeutic-M Tab) 1 tab PO DAILY [facility] Last Admin: 07/12/18 09:06 Dose: 1 tab Ondansetron HCl (Zofran Inj) 4 mg IVP Q4H PRN PRN Reason: Nausea/Vomiting Last Admin: 07/10/18 20:15 Dose: 4 mg Oxycodone HCl (Oxycodone Immediate Release Tab) 10 mg PO Q6 PRN PRN Reason: Pain, moderate (4-7) Last Admin: 07/12/18 09:04 Dose: 10 mg Pregabalin (Lyrica) 50 mg PO BID [facility] Last Admin: 07/11/18 17:21 Dose: 50 mg Saccharomyces Boulardii (Florastor) 250 mg PO BID [facility] Last Admin: 07/12/18 09:06 Dose: 250 mg Sennosides (Senokot Tab) 17.2 mg PO HS [facility] Last Admin: 07/11/18 21:33 Dose: 17.2 mg - Labs Labs: 07/12/18 07:00 07/12/18 07:00 - Head Exam Head Exam: ATRAUMATIC, NORMAL INSPECTION, NORMOCEPHALIC - Respiratory Exam Respiratory Exam: Clear to Ausculation Bilateral, NORMAL BREATHING PATTERN. absent: Rales, Rhonchi, Wheezes - Cardiovascular Exam Cardiovascular Exam: REGULAR RHYTHM, RRR, +S1, +S2. absent: JVD, Murmur - GI/Abdominal Exam GI & Abdominal Exam: Soft, Normal Bowel Sounds. absent: Tenderness - Extremities Exam Extremities Exam: Tenderness (Tenderness on back of L knee). absent: Pedal Edema Additional comments: s/p L TKA. Dresings dry, knee immobilizer in place - Neurological Exam Neurological Exam: Alert, Awake, CN II-XII Intact, Normal Gait, Oriented x3 - Psychiatric Exam Psychiatric exam: Normal Affect, Normal Mood - Skin Skin Exam: Dry, Intact, Normal Color, Warm Assessment and Plan - Assessment and Plan (Free Text) Assessment: (1) HTN (hypertension) Assessment and Plan: Continue home medication: Losartan 50mg PO daily Continue to monitor vitals. HTN well controlled on home meds. Today in 118/76 - 136/74 range in last 24 hours Pt discharged on home medications Status: Chronic (2) Status post total knee replacement, left Assessment and Plan: s/p left total knee replacement with Dr. Camarena on 07/10/18 Pt did have a small bowel movement this morning. Small soft stool without blood. Patient discharged home today from Ortho service, Dr. Camarena - Discharge recs per ortho: * Pain management per ortho * L knee dressings intact with minimal dry bloody drainage inferior aspect. Hemovac intact. 5cc drainage overnight. Sensation and motor fully intact. Pedal pulses intact * Patient to have home PT and home nursing/wound care on discharge. Rx has been provided. * Pt to follow up in the office with Dr. Camarena on Monday. Pt to maintain MIRIAM dressing until office visit, maintain knee immobilizer while in bed. Ambulatory status is WBAT with rolling walker. Status: Acute (3) Tobacco abuse Assessment and Plan: Smoking cessation counseling provided. Patient offered Nicoderm patch; however, declined and "wants to quit on her own ". Status: Acute (4) Prophylactic measure Assessment and Plan: DVT: Eliquis 2.5mg PO BID, SCD on RLE GI: not indicated Regular diet PT/OT Incentive spirometer Status: Acute Assessment/Plan Discussed with Dr. Moo Swan, PGY-1
[2018-07-12 10:59] VITALS: BP 138/86; PULSE 71; TEMP 98.8; O2SAT 97
--- NOTE | 2018-07-12 12:11 | CP.PCM.DIS ---
Provider - Provider Date of Admission: 07/10/18 09:25 Attending physician: Justin Camarena MD Time Spent in preparation of Discharge (in minutes): 30 Diagnosis - Discharge Diagnosis (1) Primary osteoarthritis of left knee Status: Acute Hospital Course - Lab Results Lab Results: Most Recent Lab Values WBC 9.6 K/uL (4.8-10.8) 07/12/18 07:00 RBC 3.21 Mil/uL (3.80-5.20) L 07/12/18 07:00 Hgb 10.1 g/dL (11.0-16.0) L 07/12/18 07:00 Hct 29.1 % (34.0-47.0) L 07/12/18 07:00 MCV 90.5 fL (81.0-99.0) 07/12/18 07:00 MCH 31.5 pg (27.0-31.0) H 07/12/18 07:00 MCHC 34.8 g/dL (33.0-37.0) 07/12/18 07:00 RDW 13.6 % (11.5-14.5) 07/12/18 07:00 Plt Count 204 K/uL (130-400) 07/12/18 07:00 MPV 8.1 fL (7.2-11.7) 07/12/18 07:00 Neut % (Auto) 78.5 % (50.0-75.0) H 07/12/18 07:00 Lymph % (Auto) 12.4 % (20.0-40.0) L 07/12/18 07:00 Ransom % (Auto) 8.2 % (0.0-10.0) 07/12/18 07:00 Eos % (Auto) 0.4 % (0.0-4.0) 07/12/18 07:00 Baso % (Auto) 0.5 % (0.0-2.0) 07/12/18 07:00 Neut # (Auto) 7.5 K/uL (1.8-7.0) H 07/12/18 07:00 Lymph # (Auto) 1.2 K/uL (1.0-4.3) 07/12/18 07:00 Ransom # (Auto) 0.8 K/uL (0.0-0.8) 07/12/18 07:00 Eos # (Auto) 0.0 K/uL (0.0-0.7) 07/12/18 07:00 Baso # (Auto) 0.0 K/uL (0.0-0.2) 07/12/18 07:00 Sodium 136 mmol/L (132-148) 07/12/18 07:00 Potassium 3.9 mmol/L (3.6-5.2) 07/12/18 07:00 Chloride 101 mmol/L (98-107) 07/12/18 07:00 Carbon Dioxide 26 mmol/L (22-30) 07/12/18 07:00 Anion Gap 13 (10-20) 07/12/18 07:00 BUN 12 mg/dL (7-17) 07/12/18 07:00 Creatinine 0.6 mg/dL (0.7-1.2) L 07/12/18 07:00 Est GFR ( Amer) > 60 07/12/18 07:00 Est GFR (Non-Af Amer) > 60 07/12/18 07:00 Random Glucose 117 mg/dL (65-105) H 07/12/18 07:00 Calcium 8.0 mg/dl (8.6-10.4) L 07/12/18 07:00 Magnesium 1.8 mg/dL (1.6-2.3) 07/11/18 08:16 Total Bilirubin 0.5 mg/dL (0.2-1.3) 07/11/18 08:16 AST 14 U/L (14-36) 07/11/18 08:16 ALT 25 U/L (9-52) 07/11/18 08:16 Alkaline Phosphatase 57 U/L (38-126) 07/11/18 08:16 Total Protein 5.9 g/dL (6.3-8.3) L 07/11/18 08:16 Albumin 3.1 g/dL (3.5-5.0) L 07/11/18 08:16 Globulin 2.8 gm/dL (2.2-3.9) 07/11/18 08:16 Albumin/Globulin Ratio 1.1 (1.0-2.1) 07/11/18 08:16 Blood Type AB POSITIVE 09/11/18 10:45 Antibody Screen Negative 07/10/18 10:45 - Hospital Course Hospital Course: Patient is a 59F with L knee DJD who failed conservative management and elected for TKR. She had an uneventful course, tolerated PT well, ambulatory with walker and was discharged home on POD 2 with home PT/home services. Patient was instructed to continue with home meds and was given Rx for Eliquis for DVT ppx and Percocet for pain. She was also instructed to maintain her MIRIAM dressings until seen in Dr. Camarena's office this Monday 07/16. She will call for follow up appt. - Date & Time of H&P Date of H&P: 07/12/18 Time of H&P: 12:11 Discharge Exam - Head Exam Head Exam: ATRAUMATIC, NORMAL INSPECTION, NORMOCEPHALIC - Extremities Exam Additional comments: L knee: Dressings CDI, MIRIAM intact with minimal dry bloody drainage inferior aspect, Hemovac intact 5 cc drainage overnight Dressings taken down revealing wound CDI with sandrine, no drainage sensation intact SP/DP/TN motor intact EHL/FHL/TA/G pedal pulses intact comps soft and NT b/l Discharge Plan - Follow Up Plan Condition: GOOD Disposition: HOME/ ROUTINE Instructions: Total Knee Replacement (DC), Managing Pain After Surgery Additional Instructions: 1) Follow up in office this Monday, call for appt 2) Maintain MIRIAM dressing until office visit 3) Maintain Knee immobilizer while in bed 4) WBAT with rolling walker 5) Rx in chart Referrals: Justin Camarena MD [Staff Provider] - Clinical Quality Measures - CQM - Stroke Antithrombotic Prescribed: Yes - Date & Time of Discharge Summary Date of Discharge Summary: 07/12/18 Time of Discharge Summary: 12:12
== END 2018-07-12 16:17 | disposition home or self-care (01) | DRG 470 ==
LOC: C.9S 09:25 → C.6T 18:49
PROVIDERS: ADMIT Orthopaedic Surgery; ATTEND Orthopaedic Surgery
PROC: 0SRD0J9 Replacement of Left Knee Joint with Synthetic Substitute, Cemented, Open Approach (ICD-10-PCS; principal; 2018-07-10 11:00)
DX: M17.12 Unilateral primary osteoarthritis, left knee (principal); I10 Essential (primary) hypertension; F17.210 Nicotine dependence, cigarettes, uncomplicated; Z79.82 Long term (current) use of aspirin; Z80.0 Family history of malignant neoplasm of digestive organs